=== PATIENT | female | born 1985 | race Caucasian/White ===

== ENCOUNTER 2019-08-08 17:10 | Emergency (ER) | payer MEDICAID ==
[~2019-08-08] VITALS: Ht 167.6 cm; Wt 74.8 kg
[2019-08-08 17:24] VITALS: BP 151/93
--- NOTE | 2019-08-08 17:35 | NUR ---
PT TAKEN TO BED 10
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
[2019-08-08 18:41] VITALS: BP 110/72
--- NOTE | 2019-08-08 18:42 | NUR ---
Patient discharged with v/s stable. Written and verbal after care instructions given and explained. Patient alert, oriented and verbalized understanding of instructions. Ambulatory with steady gait. All questions addressed prior to discharge. ID band removed. Patient advised to follow up with PMD. Rx of NORCO, MOTRIN given. Patient educated on indication of medication including possible reaction and side effects. Opportunity to ask questions provided and answered.
== END 2019-08-08 18:42 | disposition home or self-care (01) ==
LOC: MED 17:10
DX: S02.2XXA Fracture of nasal bones, initial encounter for closed fracture (principal); X58.XXXA Exposure to other specified factors, initial encounter; Y93.89 Activity, other specified; Y92.89 Other specified places as the place of occurrence of the external cause; Y99.8 Other external cause status
CPT/HCPCS: 99283